=== PATIENT | female | born 1980 | race Caucasian/White ===

== ENCOUNTER 2017-03-24 23:50 | Emergency (ER) | payer OTHER ==
[~2017-03-24] VITALS: Ht 167.6 cm; Wt 106.0 kg
[~2017-03-24 23:50] MED LIST: L-NO1TBD PO; PROP10TA8 PO
--- OUTSIDE RECORDS SUMMARY | 2017-03-24 23:54 | XMS REPORT | Continuity of Care Document ---
Author Author [facility] Address Unknown Phone Unavailable Allergies Active Description Code Type Severity Reaction Onset Reported/Identified Relationship to Patient Clinical Status Yes No Known Allergies [id number] Drug Allergy Unknown N/A 07/26/2012 Medications Problems Date Dx Coded Attending Type Code Diagnosis Diagnosed By 07/27/2012 Ot 574.10 CHOLELITH W CHOLECYS NEC 02/23/2015 Ot 574.20 02/23/2015 Ot 786.50 02/23/2015 Ot 490 02/23/2015 ANGELICA ALLEN MD Ot 729.5 PAIN IN LIMB 03/19/2015 Ot 574.20 03/19/2015 Ot 786.50 03/19/2015 Ot 490 06/03/2015 Ot 490 09/14/2015 Ot 574.20 09/14/2015 Ot 786.50 09/14/2015 Ot 490 06/24/2016 Ot 490 BRONCHITIS NOS 06/24/2016 Ot 490 BRONCHITIS NOS 11/03/2016 Ot 574.20 CHOLELITHIASIS NOS 11/03/2016 Ot 786.50 CHEST PAIN NOS 11/03/2016 Ot 490 BRONCHITIS NOS 11/03/2016 CHRISTIE OLMSTEAD Ot J02.9 ACUTE PHARYNGITIS, UNSPECIFIED 11/03/2016 CHRISTIE OLMSTEAD Ot J30.9 ALLERGIC RHINITIS, UNSPECIFIED Procedures Code Description Performed By Performed On 51.23 LAPAROSCOPIC CHOLECYSTECTOMY 07/27/2012 87.53 INTRAOPER CHOLANGIOGRAM 07/27/2012 Results Encounters ACCT No. Visit Date/Time Discharge Status Pt. Type Provider Facility Loc./Unit Complaint [id number] 02/23/2015 19:31:00 2014 20:21:00 DIS Emergency TIFFANY CORLEY, [facility] ED [id number] 01/26/2016 11:30:00 ACT Outpatient CHRISTIE OLMSTEAD [facility] [id number] 01/27/2015 18:48:00 Document Registration [id number] 07/27/2012 08:02:00 Document Registration [id number] 07/17/2012 06:49:00 Document Registration
--- OUTSIDE RECORDS SUMMARY | 2017-03-24 23:56 | XMS REPORT | Continuity of Care Document ---
Author Author [facility] Address Unknown Phone Unavailable Allergies Active Description Code Type Severity Reaction Onset Reported/Identified Relationship to Patient Clinical Status Yes No Known Allergies [id number] Drug Allergy Unknown N/A 07/26/2012 Medications Problems [...] Status Pt. Type Provider Facility Loc./Unit Complaint [id number] 02/23/2015 19:31:00 2014 20:21:00 DIS Emergency TIFFANY CORLEY, [facility] ED [id number] 01/26/2016 11:30:00 ACT Outpatient CHRISTIE OLMSTEAD [facility] [id number] 01/27/2015 18:48:00 Document Registration [id number] 07/27/2012 08:02:00 Document Registration [id number] 07/17/2012 06:49:00 Document Registration
[2017-03-25] MEDS ORDERED: GI COCKTAIL 55 ML UDC PO ONE (00:35)
[2017-03-25] MEDS ORDERED: MAG HYDROX/AL HYDROX/SIMETH 400-400-40/5 ML (MAG-AL PLUS XS) 30 ML UDC ONE (00:44)
[2017-03-25] MEDS ORDERED: BELLADONNA/PHENOBARBITAL ELIXIR (DONNATAL) 10 ML UDC ONE (00:45)
[2017-03-25] MEDS ORDERED: LIDOCAINE 2% VISCOUS 20ML UDC PO ONE (00:45)
[2017-03-25] MEDS ORDERED: SUCR1TAB29 PO (01:16)
[2017-03-25 01:35] VITALS: BP 136/86
== END 2017-03-25 01:36 | disposition home or self-care (01) ==
LOC: ED 23:52
DX: K20.9 Esophagitis, unspecified (principal)
CPT/HCPCS: 99282; 99283